=== PATIENT | female | born 1980 | race Two or more races ===

== ENCOUNTER 2023-10-06 16:17 | Emergency (ER) | payer OTHER ==
[~2023-10-06] VITALS: Ht 162.6 cm; Wt 99.8 kg
[2023-10-06] MEDS ORDERED: TAPAZOLE5 MG PO (16:57)
[2023-10-06] MEDS ORDERED: SINGULAIR10 MG PO (16:58)
[2023-10-06] MEDS ORDERED: CEFAZOLIN SODIUM 1,000 MG VIAL IM STA (20:22)
[2023-10-06] MEDS ORDERED: KETOROLAC TROMETHAMINE 60 MG VIAL IM STA (20:22)
== END 2023-10-06 20:43 | disposition home or self-care (01) ==
LOC: ER 16:18
DX: R30.0 Dysuria (principal)
CPT/HCPCS: 96372; 99282; J0690; J1885